=== PATIENT | male | born 1985 | race Caucasian/White ===

== ENCOUNTER 2017-05-01 05:14 | Day surgery (SDC) | payer BC, OTHER ==
[2017-04-24 11:31] VITALS: BMI 26.6
[2017-05-01] MEDS ORDERED: ePHEDrine SULFATE 50 MG/1 ML AMPULE ONE (07:34)
[2017-05-01] MEDS ORDERED: SUCCINYLCHOLINE CHLORIDE 200 MG/10 ML VIAL ONE (07:35)
[2017-05-01] MEDS ORDERED: PROPOFOL 20 ML ONE ×4 (07:35)
[2017-05-01] MEDS ORDERED: MIDAZOLAM HCL 2 MG/2 ML SINGLE DOSE VIAL ONE (07:36)
[2017-05-01] MEDS ORDERED: ceFAZolin SODIUM 1 GM VIAL IVPB ONE (08:21)
[2017-05-01] MEDS ORDERED: BUPIVACAINE HCL/PF 0.5% (5MG/ML) 10 ML VIAL ONE (08:37)
[2017-05-01] MEDS ORDERED: BUPIVACAINE HCL/PF 0.5% (5MG/ML) 10 ML VIAL IJ ONE (08:40)
[2017-05-01] MEDS ORDERED: oxyCODONE HCL 5 MG TABLET PO PRN (08:47)
[2017-05-01] MEDS ORDERED: ONDANSETRON 4 MG/2 ML VIAL IVPUSH PRN (08:47)
[2017-05-01] MEDS ORDERED: ACETAMINOPHEN 1000 MG/100 ML VIAL (NON FORMULARY) IVPB PRN (08:48)
--- NOTE | 2017-05-01 08:52 | HP ---
[facility] - Chief Complaint Chief Complaint: right knee pain - Past Medical History Allergies/Adverse Reactions: Allergies Allergy/AdvReac Type Severity Reaction Status Date / Time No Known Allergies Allergy Verified 05/01/17 06:41 - Current Medications Current Medications: Home Medications Medication Instructions Recorded Cetirizine HCl [Zyrtec -] 10 mg PO BID 04/24/17 Ibuprofen 400 mg PO PRN PRN 05/01/17 Oxycodone HCl/Acetaminophen 1 tab PO Q6H #30 tab MDD 4 05/01/17 [Percocet 5-325 mg Tablet -] Satellite Physical Exam - Physical Examination Vital Signs: Vital Signs Period Temp Pulse Resp BP Sys/Lane Pulse Ox Last 24 Hr 98.6 F 56 18 124/72 99 General Appearance: Well Nourished, Well Developed, Alert & Oriented x3 ENT: Clear Lung: Normal air movement Heart: Regular rate & rhythm Extremities: Other (right knee- + ttp, ROM wnl, nvi xray shows osteochondroma on MFC) Neurological: Intact, Alert, Oriented Satellite Impression/Plan - Impression/Plan Impression: right knee osteochondroma Operative Procedure: right knee osteochondroma excision Date to be Performed: 05/01/17
--- NOTE | 2017-05-01 08:53 | OP ---
Operative Note - Note: Operative Date: 05/01/17 ([facility]) Pre-Operative Diagnosis: right knee osteochondroma Operation: right knee osteochondroma excision Post-Operative Diagnosis: Same as Pre-op Surgeon: Rosalio Fernández Filter Screen Cleaner: Clemente Guillen) Anesthesiologist/INSPECTION MACHINE TENDER: Lauri Mays Anesthesia: General, Local Specimens Removed: osteochondroma Estimated Blood Loss (mls): 0 (tourniquet) Operative Report Dictated: Yes
[2017-05-01] MEDS ORDERED: LACTATED RINGERS SOLUTION 1,000 ML IV SCH (09:00)
[2017-05-01] MEDS ORDERED: ACETAMINOPHEN 1000 MG/100 ML VIAL (NON FORMULARY) IVPB ONE (09:20)
[2017-05-01 09:30] VITALS: TEMP 97.7
[2017-05-01] MEDS ORDERED: oxyCODONE HCL 5 MG TABLET ONE (10:59)
[2017-05-01 15:08] VITALS: BP 114/66; PULSE 58
--- NOTE | 2017-05-02 11:20 | OP ---
DATE OF OPERATION: 05/01/2017 PROCEDURE: Open excision of right osteochondroma. PREOPERATIVE DIAGNOSIS: Osteochondroma, right distal femur. POSTOPERATIVE DIAGNOSIS: Osteochondroma, right distal femur. SURGICAL ATTENDING: Rosalio Fernández MD FIRST ASSISTANTS: RK Tony; Lisa Guillen MD ANESTHESIA: General LMA. CLOSURE: 2-0 Vicryl fascia and subcutaneous and 3-0 Monocryl subcuticular for skin with skin glue. ESTIMATED BLOOD LOSS: Negligible. TOURNIQUET TIME: Approximately 20 minutes. COMPLICATIONS: No complications. DESCRIPTION OF OPERATIVE PROCEDURE: Patient was taken to the operating room on May 01, 2017. General anesthesia LMA was administered by the anesthesiologist. IV Kefzol was given as prophylactic prior to the case. A well-padded pneumonic tourniquet was placed on the right proximal thigh. Right lower extremity was prepped and draped in the usual sterile fashion. The leg was exsanguinated with an Esmarch bandage. Tourniquet was inflated to 275 mmHg. A 3-cm longitudinal incision over the distal medial femur directly over the palpable osteochondroma was incised using Bovie cautery. Blunt dissection was carried out to the level of the fascia. The fibers were running in an oblique fashion of the muscle. The fascia was opened parallel to those oblique fibers, and the muscle was then split, exposing the osteochondroma beneath it. A rongeur was used to cut the osteochondroma at its base, flush with the cortical bone of the distal femur. The bone was excised and sent to Pathology. The bed was made sure to be smooth and flush with the [place] cortex of the distal femur. The wound was irrigated. The fascia was closed using 2-0 Vicryl in a running suture and 2-0 Vicryl subcutaneous with 3-0 Monocryl subcuticular. Skin glue and sterile pressure dressing were applied. Tourniquet was deflated. LISA GUILLEN M.D. [id number] MTDD
--- NOTE | 2017-05-02 16:48 | PATH ---
Surgical Pathology Report Patient Name: OSIRIS PINEDO [facility]. Rec. #: [id number] /Age/Gender: 1985 (Age: 31) / M Account: [id number] Location: [facility] Taken: 05/01/2017 Received: 05/01/2017 Reported: 05/02/2017 Physicians: Jennie Keller M.D. Specimen(s) Received OSTEOCHONDROMA Clinical History Mass right distal femur Osteochondroma Final Diagnosis BONE AND CARTILAGE, RIGHT KNEE/DISTAL FEMUR, MASS/OSTEOCHONDROMA, EXCISION: BENIGN BONY OUTGROWTH WITH CARTILAGINOUS CAP, CONSISTENT WITH OSTEOCHONDROMA. ADDITIONAL FRAGMENTS OF BENIGN FIBROFATTY TISSUE AND SKELETAL MUSCLE. Comment: Imaging correlations are suggested. Electronically Signed Clarke Hwang M.D. Gross Description Received in formalin labeled "osteochondroma" is a 1.0 x 0.7 x 0.7 cm portion of bone with a cartilaginous cap. Also received within the same container is a 2.3 x 1.8 x 0.3 cm aggregate of christine fragments of bone and soft tissue. The capped portion of bone is trisected and the specimen is entirely submitted in 2 cassettes as follows: 1-trisected portion of bone, following decalcification; 2-separately received fragments, following decalcification. 05/01/201705/01/2017
== END 2017-05-01 12:10 | disposition home or self-care (01) ==
LOC: JASU-SURG 05:14
PROVIDERS: ATTEND Orthopaedic Surgery
PROC: 0QBC0ZZ Excision of Left Lower Femur, Open Approach (ICD-10-PCS; principal; 2017-05-01 08:00)
DX: D16.21 Benign neoplasm of long bones of right lower limb (principal)
CPT/HCPCS: 88305-TC; 94760; 97116-GP

== ENCOUNTER 2017-12-07 10:00 | Emergency (ER) | payer OTHER ==
[2017-12-07 10:04] VITALS: BP 126/83; PULSE 58; TEMP 99; BMI 26.6
--- NOTE | 2017-12-07 11:16 | PDOC ---
History of Present Illness - General Chief Complaint: Injury Stated Complaint: R FINGER INJURY Time Seen by Provider: 12/07/17 10:12 History Source: Patient Exam Limitations: No Limitations - History of Present Illness Initial Comments: 12/07/17 11:07 Patient is a 32-year-old male, no significant medical history [address] [facility] liaison, he slammed his right first finger in fire truck door presents with bruising to nail. Crushing pain 10/10. No deformity, good range of motion. Denies any other injury. Past Medical History: [Denies]. Allergies: No known allergies Medications: [None] Family History: Non-contributory Social History: Denies smoking, alcohol use, or IVDU Review of Systems GENERAL/CONSTITUTIONAL: [No fever or chills. No weakness. No weight change.] HEAD, EYES, EARS, NOSE AND THROAT: [No change in vision. No ear pain or discharge. No sore throat. ] CARDIOVASCULAR: [No chest pain or shortness of breath.] RESPIRATORY: [No cough, wheezing, or hemoptysis.] GASTROINTESTINAL: [No nausea, vomiting, diarrhea or constipation. No rectal bleeding.] GENITOURINARY: [No dysuria, frequency, or change in urination.] MUSCULOSKELETAL: [No joint or muscle swelling or pain. No neck or back pain.] SKIN : [No rash or easy bruising.] Physical Exam: GENERAL: [The patient is awake, alert, and fully oriented, in no acute distress. ] LUNGS: [Breath sounds equal, clear to auscultation bilaterally. No wheezes, and no crackles.] HEART: [Regular rate and rhythm, normal S1 and S2 without murmur, rub or gallop. ] ABDOMEN: [Soft, nontender, normoactive bowel sounds. No guarding, no rebound. No masses. No bruising or abrasions] MUSCULOSKELETAL: [Normal range of motion, no edema. No clubbing or cyanosis. No cords, erythema, or tenderness. No CVA Tenderness with fist.] NEUROLOGICAL: [Cranial nerves II through XII grossly intact. Normal speech, normal gait.] SKIN: [Warm, Dry, normal turgor, no rashes or lesions noted. No erythema or edema there is a 50% subungual hematoma to right first finger] 12/07/17 12:08 Past History - Past Medical History Allergies/Adverse Reactions: Allergies Allergy/AdvReac Type Severity Reaction Status Date / Time No Known Allergies Allergy Verified 12/07/17 10:04 Home Medications: Ambulatory Orders NK [No Known Home Medication] 12/07/17 Anemia: No Asthma: No Cancer: No Cardiac Disorders: No CVA: No COPD: No CHF: No Dementia: No Diabetes: No GI Disorders: No Disorders: No HTN: No Hypercholesterolemia: No Liver Disease: No Seizures: No Thyroid Disease: No - Suicide/Smoking/Psychosocial Hx Smoking History: Never smoked Have you smoked in the past 12 months: No Number of Cigarettes Smoked Daily: 0 Hx Alcohol Use: No Drug/Substance Use Hx: No Substance Use Type: None Hx Substance Use Treatment: No *Physical Exam - Vital Signs Last Vital Signs Temp Pulse Resp BP Pulse Ox 99.0 F 58 L 20 126/83 99 12/07/17 10:01 12/07/17 10:01 12/07/17 10:01 12/07/17 10:01 12/07/17 10:01 Procedures - Nail Trephination Method of Drainage: nail cauterized Sterile Dressing Applied: Yes Finger Splint: No Progress: 12/07/17 12:15 Area prepped sterilely with Betadine, small puncture made to the base of the nail with good result. Sterile dressing then applied. ED Treatment Course - RADIOLOGY Radiology Studies Ordered: Category Date Time Status FINGER(S) RIGHT [RAD] Stat Radiology 12/07/17 10:13 Taken Medical Decision Making - Medical Decision Making 12/07/17 12:17 A/P: Patient here for crush injury to right first finger. Since x-ray, negative for acute fracture there is a 50% subungual hematoma, nail trephination performed with good result patient to follow-up as needed. Motrin for pain. I have given patient Percocet while in emergency department for pain, throbbing 10 out of 10. Patient to perform warm soaks to finger 4 times a day, medication as needed. I discussed the physical exam findings, ancillary test results and final diagnoses with the patient. I answered all of the patient's questions. The patient was satisfied with the care received and felt comfortable with the discharge plan and treatment plan. The patient will call to arrange follow-up and will return to the Emergency Department with any new, persistent or worsening symptoms. *DC/Admit/Observation/Transfer Diagnosis at time of Disposition: Subungual hematoma - Discharge Dispostion Disposition: HOME Condition at time of disposition: Good Admit: No - Referrals Referrals: Rosalio Fernández MD [Staff Physician] - - Patient Instructions Additional Instructions: Warm soaks to the finger Motrin 600 mg over the counter as needed for pain. You may lose your nail. Follow up with Dr. Fernández as needed. - Post Discharge Activity Forms/Work/School Notes: Back to Work
== END 2017-12-07 11:18 | disposition home or self-care (01) ==
LOC: JERFT 10:00
PROC: 0H9QXZZ Drainage of Finger Nail, External Approach (ICD-10-PCS; principal; 2017-12-07)
DX: S60.111A Contusion of right thumb with damage to nail, initial encounter (principal); V86.41XA Person injured while boarding or alighting from ambulance or fire engine, initial encounter; Y92.29 Other specified public building as the place of occurrence of the external cause; Y93.89 Activity, other specified; Y99.0 Civilian activity done for income or pay
CPT/HCPCS: 73140-TC-RT; 99281-25

== ENCOUNTER 2022-02-05 20:15 | Emergency (ER) | payer OTHER ==
[2022-02-05 20:29] VITALS: BP 114/76; PULSE 74; TEMP 98.1; BMI 25.8
[2022-02-05] MEDS ORDERED: IBUPROFEN 600 MG TABLET (FP) PO ONE ×2 (21:50→21:59)
== END 2022-02-05 22:30 | disposition home or self-care (01) ==
LOC: JERFT 20:15
DX: S86.812A Strain of other muscle(s) and tendon(s) at lower leg level, left leg, initial encounter (principal); X50.0XXA Overexertion from strenuous movement or load, initial encounter
CPT/HCPCS: 73562-TC-LT-FY; 99283-25